=== PATIENT | male | born 1975 | race Caucasian/White ===

== ENCOUNTER 2016-06-22 13:46 | Observation (INO) | payer BC, OTHER ==
[~2016-06-22] VITALS: Ht 182.9 cm; Wt 112.0 kg
[2016-06-22] VITALS (11 sets, daily range): BP systolic 97–134; BP diastolic 47–84; PULSE 89–131; RESP 18–20; TEMP 98.1–101.5; O2SAT 97–100
[~2016-06-22 13:46] MED LIST: LANTUSP SQ
[2016-06-22] MEDS ORDERED: NOVOLOGP2 SQ (15:03)
[2016-06-22] MEDS ORDERED: SODIUM CHLOR 0.9% 1000 ML INJ 600 ML IV ONE (15:09)
[2016-06-22] MEDS ORDERED: SODIUM CHLOR 0.9% 1000 ML INJ 1,000 ML IV ONE ×3 (15:09)
[2016-06-22] MEDS ORDERED: IBUPROFEN 600 MG TAB PO ONE (15:15)
--- NOTE | 2016-06-22 15:25 | PD ---
HPI Chief Complaint: Cold / Flu Symptoms Time Seen by Provider: 15:00 Travel History International Travel<30 days: No Contact w/Intl Traveler<30days: No Traveled to known affect area: No History of Present Illness HPI Patient is a 40-year-old male who presents to emergency room with complaints of not feeling well. Patient reports that for the past 3 days, he has had a cough , reports that he is bringing up clear white sputum. Reports that he has had increased runny nose, sinus congestion with postnasal drip. Patient reports that he has been coughing so much, he has not been able to sleep very well. Patient denies fevers at home, reports that he has been having chills. Patient reports that his ears have been hurting him and reports a sore throat. Patient reports that he is a type I diabetic and does take insulin, reports that his blood sugars have been higher than they normally are in the 200's. Patient reports that he is here from [place], reports that he is here visiting his mom and his family members. Reports that he spent the holidays with his nieces who were sick with cough and congestion. Reports "i think that they may have gotten me sick" Pt with no chest pain or sob at this time. PFSH Past Medical History Blood Disorders: No Heart Rhythm Problems: No Cancer: No Cardiovascular Problems: Yes High Cholesterol: Yes Chest Pain: No Congestive Heart Failure: No Diabetes: Yes Diminished Hearing: No Endocrine: No Gastrointestinal Disorders: Yes GERD: No Genitourinary: No Hepatitis: No Hiatal Hernia: No Hypertension: No Immune Disorder: No Musculoskeletal: No Neurologic: No Psychiatric: No Reproductive: No Respiratory: Yes (sinus infections) Myocardial Infarction: No Ulcer: No Influenza Vaccination: Yes Past Surgical History Appendectomy: No Cholecystectomy: No Pacemaker: No Social History Alcohol Use: No Tobacco Use: No Substance Use: No Allergies-Medications (Allergen,Severity, Reaction): Coded Allergies: Penicillin (Verified Allergy, Severe, UNKNOWN, 06/22/16) Codeine (Verified Adverse Reaction, Severe, NAUSEA AND HALLUCINATIONS, 06/22) Reported Meds & Prescriptions Reported Meds & Active Scripts Active Reported Novolog Inj (Insulin Aspart) 1,000 Unit/10 Ml Vial 1 Units SQ ONCE Review of Systems General / Constitutional: Positive: Fever, Chills Eyes: No: Visual changes HENT: No: Headaches Cardiovascular: No: Chest Pain or Discomfort Respiratory: Positive: Cough, Wheezing, No: Shortness of Breath Gastrointestinal: No: Nausea, Vomiting, Abdominal Pain Genitourinary: No: Dysuria Musculoskeletal: No: Pain Skin: No Rash Neurologic: No: Weakness Psychiatric: No: Depression Endocrine: No: Polydipsia Hematologic/Lymphatic: No: Easy Bruising Physical Exam Narrative GENERAL: Patient in moderate distress SKIN: Warm and dry. HEAD: Atraumatic. Normocephalic. EYES: Pupils equal and round. No scleral icterus. No injection or drainage. ENT: No nasal bleeding or discharge. Mucous membranes pink and moist. TM Intact with no erythema or edema, no evidence of otitis media or externa NECK: Trachea midline. No JVD. CARDIOVASCULAR: Patient tachycardic. No murmur appreciated. RESPIRATORY: No accessory muscle use. Patient with scattered wheezing on exam GASTROINTESTINAL: Abdomen soft, non-tender, nondistended. Hepatic and splenic margins not palpable. MUSCULOSKELETAL: No obvious deformities. No clubbing. No cyanosis. No edema. NEUROLOGICAL: Awake and alert. No obvious cranial nerve deficits. Motor grossly within normal limits. Normal speech. PSYCHIATRIC: Appropriate mood and affect; insight and judgment normal. Data Data Last Documented VS Vital Signs Date Time Temp Pulse Resp B/P Pulse Ox O2 Delivery O2 Flow Rate FiO2 06/22/16 18:22 103 20 100/58 98 Room Air 06/22/16 15:00 99.8 Orders Electrocardiogram (06/22/16 15:09) Complete Blood Count With Diff (06/22/16 15:09) Comprehensive Metabolic Panel (06/22/16 15:09) Prothrombin Time / Inr (Pt) (06/22/16 15:09) Act Partial Throm Time (Ptt) (06/22/16 15:09) Lactic Acid Sepsis Protocol (06/22/16 15:09) Magnesium (Mg) (06/22/16 15:09) Urinalysis - C+S If Indicated (06/22/16 15:09) Influenzae A/B Antigen (06/22/16 15:09) Blood Culture (06/22/16 15:09) Chest, Single Ap (06/22/16 15:09) Blood Glucose (06/22/16 15:09) Ecg Monitoring (06/22/16 15:09) Iv Access Insert/Monitor (06/22/16 15:09) Oximetry (06/22/16 15:09) Oxygen Administration (06/22/16 15:09) Ibuprofen (Motrin) (06/22/16 15:15) Sodium Chlor 0.9% 1000 Ml Inj (Ns 1000 M (06/22/16 15:09) Sodium Chlor 0.9% 1000 Ml Inj (Ns 1000 M (06/22/16 15:09) Sodium Chlor 0.9% 1000 Ml Inj (Ns 1000 M (06/22/16 15:09) Sodium Chlor 0.9% 1000 Ml Inj (Ns 1000 M (06/22/16 15:09) Electrocardiogram (06/22/16 ) Albuterol-Ipratropium Neb (Duoneb Neb) (06/22/16 15:15) Levofloxacin 750 Mg Premix Inj (Levaquin (06/22/16 16:45) Admit Order (Ed Use Only) (06/22/16 18:45) Labs Laboratory Tests Test 06/22/16 06/22/16 15:20 17:05 White Blood Count 11.2 TH/MM3 Red Blood Count 5.72 MIL/MM3 Hemoglobin 15.6 GM/DL Hematocrit 47.8 % Mean Corpuscular Volume 83.6 FL Mean Corpuscular Hemoglobin 27.2 PG Mean Corpuscular Hemoglobin 32.5 % Concent Red Cell Distribution Width 12.9 % Platelet Count 185 TH/MM3 Mean Platelet Volume 10.3 FL Neutrophils (%) (Auto) 81.7 % Lymphocytes (%) (Auto) 10.3 % Monocytes (%) (Auto) 6.9 % Eosinophils (%) (Auto) 0.1 % Basophils (%) (Auto) 1.0 % Neutrophils # (Auto) 9.1 TH/MM3 Lymphocytes # (Auto) 1.2 TH/MM3 Monocytes # (Auto) 0.8 TH/MM3 Eosinophils # (Auto) 0.0 TH/MM3 Basophils # (Auto) 0.1 TH/MM3 CBC Comment DIFF FINAL Differential Comment Prothrombin Time 10.7 SEC Prothromb Time International 1.0 RATIO Ratio Activated Partial 28.0 SEC Thromboplast Time Sodium Level 137 MEQ/L Potassium Level 3.9 MEQ/L Chloride Level 101 MEQ/L Carbon Dioxide Level 22.7 MEQ/L Anion Gap 13 MEQ/L Blood Urea Nitrogen 9 MG/DL Creatinine 0.94 MG/DL Estimat Glomerular Filtration 89 ML/MIN Rate Random Glucose 331 MG/DL Lactic Acid Level 2.2 mmol/L 2.8 mmol/L Calcium Level 9.0 MG/DL Magnesium Level 2.0 MG/DL Total Bilirubin 1.0 MG/DL Aspartate Amino Transf 56 U/L (AST/SGOT) Alanine Aminotransferase 52 U/L (ALT/SGPT) Alkaline Phosphatase 157 U/L Total Protein 7.7 GM/DL Albumin 3.6 GM/DL [facility] Medical Decision Making Medical Screen Exam Complete: Yes Emergency Medical Condition: Yes Interpretation(s) EKG at 1526: Sinus tachycardia at 115bpm, qt/qtc: 318/414, no acute st or t wave changes Vital Signs Date Time Temp Pulse Resp B/P Pulse Ox O2 Delivery O2 Flow Rate FiO2 06/22/16 15:00 99.8 118 20 134/84 100 Room Air 06/22/16 14:54 97 Room Air 06/22/16 14:00 101.5 131 18 97 Differential Diagnosis sepsis, pneumonia, influenza, pneumothorax, dka, electrolyte abnormality Narrative Course Patient is a 40-year-old male who presents to emergency room with complaints of fevers, chills, cough and congestion. Patient reports that symptoms began 3 days ago, reports that he has had increased cough/congestion/fever chills. Pt has been exposed to sick children (his family members) who were sick prior to onset of his symptoms. Pt with SIRS criteria with tachycardia with HR 131 and temp of 101.5. Lactate ordered, pt has been pancutured. 30cc/kg fluid bolus ordered for patient. chest xray ordered to evaluate for possible pneumonia. CBC, BMP ordered as well to evaluate for infection, electrolyte abnormality, hyperglycemia/dka. Patient is wheezing on exam - will give neb treatments as well Patient reevaluated, patient reports that he is feeling better cbc wbc: 11.2 lactate: 2.2 bmp: glucose: 331 xray of chest: mild bibasilar atelectasis pt with DM1 with SIRS criteria, pt has been pancultured, iv dose of antibiotics ordered for him INFLUENZA A POSITIVE - reviewed with pt that his flu is positive. pt has been symptomatic for the past 3 days - not a candidate for tamiflu pts repeat lactate 2.8(after 2 hour protocol), pt still tach with hr 103, bp now 100/58 after 4 liters of fluid pt will require observation at this time as lactate is elevated from 2.2 Critical Care Narrative Aggregate critical care time was 30 minutes. Time to perform other separately billable procedures was not included in the critical care time. My time did not include minutes spent treating any other patients simultaneously or on activities that did not directly contribute to the patient's treatment. The services I provided to this patient were to treat and/or prevent clinically significant deterioration that could result in: , decompensation, deterioration I provided critical care services requiring my management, as noted below: Chart data review, documentation time, medication orders and management, vital sign assessments/reviewing monitor data, ordering and reviewing lab tests, ordering and interpreting/reviewing x-rays and diagnostic studies, care of the patient and discussion of the patient with the admitting physicians. Sepsis Criteria SIRS Criteria (2 or more): Temp > 100.9 or < 96.8, Heart rate over 90 Severe Sepsis (+one): Lactate >2 Criteria Outcome: Meets SIRS criteria Physician Communication Physician Communication case reviewed with dr can who accepts pt to service Diagnosis Primary Impression: SIRS (systemic inflammatory response syndrome) Additional Impressions: Hyperglycemia Influenza A Admitting Information Admitting Physician Requests: Observation Octavia Romero DO Jun 22, 2016 15:25
[2016-06-22] MEDS: RESP: ALBUTEROL 2.5 MG/IPRATROPIUM 0.5 MG NEB (SCH) INH (15:28)
[2016-06-22 15:34] LABS: AUTOMATED NEUTROPHIL # 9.1 TH/MM3 (1.8-7.7); BASOPHIL # 0.1 TH/MM3 (0-0.2); EOSINOPHIL % 0.1 % (0.0-4.0); HEMATOCRIT 47.8 % (39.0-51.0); LYMPH % 10.3 % (9.0-44.0); LYMPHOCYTE # 1.2 TH/MM3 (1.0-4.8); MEAN CELL VOLUME 83.6 FL (80.0-100.0); MEAN CORPUSCULAR HEMOGLOBIN 27.2 PG (27.0-34.0); MEAN CORPUSCULAR HGB CONC 32.5 % (32.0-36.0); MONO % 6.9 % (0.0-8.0); NEUT % 81.7 % (16.0-70.0); PLATELET COUNT 185 TH/MM3 (150-450); RED BLOOD COUNT 5.72 MIL/MM3 (4.50-5.90); RED CELL DISTRIBUTION WIDTH 12.9 % (11.6-17.2); WHITE BLOOD COUNT 11.2 TH/MM3 (4.0-11.0)
[2016-06-22 15:35] LABS: HEMO FLAGS DIFF FINAL
[2016-06-22 15:42] LABS: CHLORIDE 101 MEQ/L (98-107); POTASSIUM 3.9 MEQ/L (3.5-5.1); SODIUM (NA) 137 MEQ/L (136-145)
--- NOTE | 2016-06-22 15:44 | RADHPO ---
EXAM DATE/TIME: 06/22/2016 15:18 [facility] COMPARISON: No previous studies available for comparison. INDICATIONS : Vomitting and cough. MEDICAL HISTORY : None. SURGICAL HISTORY : None. ENCOUNTER: Initial ACUITY: 1 day PAIN SCORE: 2/10 LOCATION: Bilateral chest FINDINGS: Small lung volumes with mild bibasilar atelectasis noted. No perceptible pneumonia. No large effusion . No pneumothorax. Heart size within normal limits. CONCLUSION: Mild bibasilar atelectasis. Oziel Bryant MD on June 22, 2016 at 15:42 Board Certified Radiologist. This report was verified electronically.
[2016-06-22 15:45] LABS: ANION GAP 13 MEQ/L (5-15); BICARBONATE 22.7 MEQ/L (21.0-32.0); BLOOD UREA NITROGEN 9 MG/DL (7-18)
[2016-06-22 15:47] LABS: PROTHROMBIN TIME - PATIENT 10.7 SEC (9.8-11.6)
[2016-06-22 15:48] LABS: ALT (GPT) 52 U/L (12-78); AST (GOT) 56 U/L (15-37); GLOMERULAR FILTRATION RATE 89 ML/MIN (>89)
[2016-06-22 15:51] LABS: ALKALINE PHOSPHATASE 157 U/L (45-117)
[2016-06-22] MEDS ORDERED: LEVOFLOXACIN 750 MG PREMIX INJ 150 ML IV ONE (16:45)
[2016-06-22 17:28] LABS: LACTIC ACID GHOST NOT REPORTABLE
[2016-06-22] MEDS ORDERED: ONDANSETRON HCL 4 MG/2 ML VIAL IVP PRN (19:00)
[2016-06-22] MEDS ORDERED: NALOXONE HCL 0.4 MG/ML AMP IV PRN (19:00)
[2016-06-22] MEDS ORDERED: DEXTROSE 50% IN WATER 50 ML VIAL(D50) IV PUSH PRN (19:00)
[2016-06-22] MEDS ORDERED: ACETAMINOPHEN 325 MG TAB PO PRN (19:00)
[2016-06-22] MEDS ORDERED: GLUCAGON 1 MG/ML VIAL OTHER PRN (19:00)
[2016-06-22] MEDS ORDERED: MAGNESIUM HYDROXIDE SUSP 30 ML CUP PO PRN (19:00)
[2016-06-22] MEDS: NS + KCL 20 MEQ INJ 1,000 ML IV SCH (20:09)
[2016-06-22] MEDS: INSULIN ASPART SUPPLEMENTAL SCALE SQ SCH (20:37)
[2016-06-22 21:32] LABS: BLOOD, URINE NEG (NEG); KETONE, URINE 40 mg/dL (NEG); NITRITE,URINE NEG (NEG)
[2016-06-22 21:46] LABS: GLUCOSE,URINE 1000 OR GREATER mg/dL (NEG)
[2016-06-22 21:52] LABS: METHOD OF COLLECTION CLEAN CATCH; URINE COLOR YELLOW (YELLW/STRAW)
[2016-06-22 21:56] LABS: COMMENT (UR) CULT NOT INDICATED; CULTURE IF INDICATED CULT NOT INDICATED; SQUAMOUS EPITHELIAL CELL URINE 0-5 /hpf (0-5)
[2016-06-23] VITALS (8 sets, daily range): BP systolic 99–133; BP diastolic 63–88; PULSE 73–99; RESP 16–18; TEMP 97.9–100.1; O2SAT 96–99
[2016-06-23] MEDS ORDERED: guaiFENesin/DEXTROMETHORPHAN 200 MG/20 MG/10 ML CUP PO PRN (00:30)
[2016-06-23] MEDS: NS + KCL 20 MEQ INJ 1,000 ML IV SCH (06:17)
[2016-06-23] MEDS: INSULIN ASPART SUPPLEMENTAL SCALE SQ SCH ×2 (06:23→11:00)
[2016-06-23 06:29] LABS: AUTOMATED NEUTROPHIL # 4.2 TH/MM3 (1.8-7.7); BASOPHIL % 0.6 % (0.0-2.0); EOSINOPHIL # 0.1 TH/MM3 (0-0.4); EOSINOPHIL % 1.2 % (0.0-4.0); HEMATOCRIT 38.7 % (39.0-51.0); HEMO FLAGS DIFF FINAL; LYMPH % 24.5 % (9.0-44.0); LYMPHOCYTE # 1.7 TH/MM3 (1.0-4.8); MEAN CELL VOLUME 84.4 FL (80.0-100.0); MEAN CORPUSCULAR HEMOGLOBIN 28.1 PG (27.0-34.0); MEAN CORPUSCULAR HGB CONC 33.3 % (32.0-36.0); NEUT % 59.7 % (16.0-70.0); PLATELET COUNT 135 TH/MM3 (150-450); RED BLOOD COUNT 4.58 MIL/MM3 (4.50-5.90); RED CELL DISTRIBUTION WIDTH 13.1 % (11.6-17.2)
[2016-06-23 06:43] LABS: BICARBONATE 24.6 MEQ/L (21.0-32.0); POTASSIUM 3.6 MEQ/L (3.5-5.1)
[2016-06-23] MEDS ORDERED: IBUPROFEN 400 MG TAB PO PRN (10:30)
[2016-06-23] MEDS ORDERED: OSELTAMIVIR PHOSPHATE 75 MG CAP PO SCH (11:15)
[2016-06-23] MEDS ORDERED: POTASSIUM CHLORIDE 20 MEQ CONTROLLED RELEASE TAB PO ONE (11:45)
--- NOTE | 2016-06-23 15:17 | HHI.HP ---
[facility] Primary Care Physician No Primary Care Physician Admission Diagnosis SIRS, Influenza A Diagnoses: (1) Severe sepsis Diagnosis: Principal (2) Influenza A Diagnosis: Principal (3) Elevated lactic acid level Diagnosis: Principal (4) Type 1 diabetes mellitus with hyperglycemia Diagnosis: Principal Chief Complaint: nasal drip, cough, body aches Travel History International Travel<30 Days: No Contact w/Intl Traveler <30 Da: No Traveled to Known Affected Are: No Sepsis Criteria SIRS Criteria (2 or more): Temp > 100.9 or < 96.8, Heart rate over 90 Sepsis Criteria (SIRS+source): Infect source susp/known Severe Sepsis (+one): Lactate >2 Criteria Outcome: Meets severe sepsis criteria History of Present Illness 40-year-old male, type I diabetic with insulin pump is admitted for influenza. Patient states his flu symptoms started 4 days ago. He admits to postnasal drip and cough as well as ear discomfort, myalgias, and fevers. Patient states he can't sleep due to postnasal drip, but overall states is getting better. He denies any shortness of breath, abdominal pain, nausea, vomiting, or diarrhea. He is eating okay. Patient states he did get the flu shot, but admits to sick contacts. Review of Systems Other ROS x 10 negative unless otherwise indicated in history of present illness. Past Family Social History Past Medical History Type I diabetic Past Surgical History No previous surgeries. Reported Medications Insulin pump: Novolog Inj (Insulin Aspart) 1,000 Unit/10 Ml Vial 1 Units SQ ONCE Allergies: Coded Allergies: Penicillin (Verified Allergy, Severe, UNKNOWN, 06/22/16) Codeine (Verified Adverse Reaction, Severe, NAUSEA AND HALLUCINATIONS, 06/22) Family History Mother: Hypertension, hyperlipidemia, type 2 diabetes. Social History Denies alcohol use. Denies cigarette smoking. Physical Exam Vital Signs Vital Signs Date Time Temp Pulse Resp B/P Pulse Ox O2 Delivery O2 Flow Rate FiO2 06/23/16 12:00 98.6 92 18 119/88 98 06/23/16 11:14 94 06/23/16 08:00 100.1 99 18 133/85 98 06/23/16 07:10 16 99 Room Air 06/23/16 07:10 95 16 99 Room Air 06/23/16 07:10 99 Room Air 06/23/16 07:10 99.1 96 16 107/63 99 Room Air 06/23/16 06:10 80 18 96 Room Air 06/23/16 06:10 97.9 80 18 107/72 96 Room Air 06/23/16 03:43 81 18 99/67 97 Room Air 06/23/16 03:43 81 18 97 Room Air 06/23/16 01:50 73 18 96 Room Air 06/23/16 01:50 73 18 118/74 96 Room Air 06/23/16 00:34 99 18 124/83 99 Room Air 06/22/16 23:28 89 18 134/80 98 Room Air 06/22/16 23:28 89 18 98 Room Air 06/22/16 22:26 95 18 129/75 99 Room Air 06/22/16 22:18 18 06/22/16 21:20 97 18 124/78 100 Room Air 06/22/16 21:20 97 18 100 Room Air 06/22/16 20:10 105 18 102/63 99 Room Air 06/22/16 20:00 98 21 06/22/16 19:08 105 18 97 Room Air 06/22/16 19:08 98.1 105 18 108/63 97 Room Air 06/22/16 18:22 103 20 100/58 98 Room Air 06/22/16 16:54 122 20 97/47 98 Room Air 06/22/16 15:39 98 Room Air 06/22/16 15:39 98 Room Air Physical Exam GENERAL: This is a well-nourished, well-developed patient, in no apparent distress. SKIN: No rashes, ecchymoses or lesions. No diaphoresis. HEAD: Atraumatic. Normocephalic. EYES: No scleral icterus. No injection or drainage. CARDIOVASCULAR: Regular rate and rhythm. RESPIRATORY: Clear to auscultation. Breath sounds equal bilaterally. No wheezes , rales, or rhonchi. GASTROINTESTINAL: Abdomen soft, non-tender, nondistended. MUSCULOSKELETAL: No lower extremity edema bilaterally. NEUROLOGICAL: Awake and alert. Motor grossly within normal limits. Normal speech. Laboratory Laboratory Tests Test 06/22/16 06/22/16 06/22/16 06/23/16 15:20 17:05 21:15 06:05 White Blood Count 11.2 7.0 Red Blood Count 5.72 4.58 Hemoglobin 15.6 12.9 Hematocrit 47.8 38.7 Mean Corpuscular Volume 83.6 84.4 Mean Corpuscular Hemoglobin 27.2 28.1 Mean Corpuscular Hemoglobin 32.5 33.3 Concent Red Cell Distribution Width 12.9 13.1 Platelet Count 185 135 Mean Platelet Volume 10.3 10.0 Neutrophils (%) (Auto) 81.7 59.7 Lymphocytes (%) (Auto) 10.3 24.5 Monocytes (%) (Auto) 6.9 14.0 Eosinophils (%) (Auto) 0.1 1.2 Basophils (%) (Auto) 1.0 0.6 Neutrophils # (Auto) 9.1 4.2 Lymphocytes # (Auto) 1.2 1.7 Monocytes # (Auto) 0.8 1.0 Eosinophils # (Auto) 0.0 0.1 Basophils # (Auto) 0.1 0.0 CBC Comment DIFF FINAL DIFF FINAL Differential Comment Prothrombin Time 10.7 Prothromb Time International 1.0 Ratio Activated Partial 28.0 Thromboplast Time Sodium Level 137 145 Potassium Level 3.9 3.6 Chloride Level 101 112 Carbon Dioxide Level 22.7 24.6 Anion Gap 13 8 Blood Urea Nitrogen 9 6 Creatinine 0.94 0.61 Estimat Glomerular Filtration 89 147 Rate Random Glucose 331 156 Lactic Acid Level 2.2 2.8 1.2 Calcium Level 9.0 7.8 Magnesium Level 2.0 Total Bilirubin 1.0 Aspartate Amino Transf 56 (AST/SGOT) Alanine Aminotransferase 52 (ALT/SGPT) Alkaline Phosphatase 157 Total Protein 7.7 Albumin 3.6 Urine Collection Type CLEAN CATCH Urine Color YELLOW Urine Turbidity CLEAR Urine pH 6.0 Urine Specific [place] 1.033 Urine Protein NEG Urine Glucose (UA) 1000 OR GREATER Urine Ketones 40 Urine Occult Blood NEG Urine Nitrite NEG Urine Bilirubin NEG Urine Leukocyte Esterase NEG Urine Squamous Epithelial 0-5 Cells Microscopic Urinalysis Comment CULT NOT INDICATED Date/Time Procedure Status Source Growth 06/22/16 15:25 Influenza Types A,B Antigen (SUZE) - Final Complete Nasal Aspirate Positive For Flu A Antigen 06/22/16 15:25 Aerobic Blood Culture - Preliminary Resulted Blood Peripheral NO GROWTH IN 1 DAY 06/22/16 15:25 Anaerobic Blood Culture - Preliminary Resulted Blood Peripheral NO GROWTH IN 1 DAY Result Diagram: 06/23/16 0605 06/23/16 0605 Imaging Last Impressions Chest X-Ray 06/22/16 1509 Signed Impressions: Service Date/Time: Wednesday, June 22, 2016 15:18 - CONCLUSION: Mild bibasilar atelectasis. Oziel Bryant MD Assessment and Plan Assessment and Plan 40-year-old male with: Patient admitted for influenza because he has type 1 diabetes and elevated lactic acid. Severe sepsis: Fever of 101.5. Tachycardic at 131 bpm. Lactic acid 2.8--> 1.2. Mild leukocytosis of 11.2. Source of infection influenza A. -IV fluids. -Blood cultures no growth in 1 day -Tamiflu started -Telemetry, vitals Influenza: Antigen A+. Patient with fever, myalgias, postnasal drip, cough. Temp 100.1 this morning, currently afebrile. -Motrin/Tylenol for fever, myalgias prn -Tamiflu -Robitussin prn cough -s/p IVF; oral hydration Type 1 diabetes with hyperglycemia: Improved. Glucose 331 on arrival. No evidence of DKA. Patient has been using his insulin pump and BGL is now normal , 95 at 1220. -Bedside BGLs -Continue insulin pump -Diabetic diet DVT prevention: SCDs, early ambulation. Leukocytosis, lactic acidosis, and hyperglycemia resolved. Patient is stable for discharge. Discharge disposition: Home in stable condition Diet: Diabetic Medications: Continue insulin pump; Tamiflu. Activity: Regular Follow-up: PCP Written by Sandra Dejesus PA-C acting as scribe for Dr. Hussein on 06/23/16 at 1515. The documentation accurately reflects the work and decisions performed face-to- face by me Dr. Hussein on 06/23/16 at 1515. Sandra Dejesus Jun 23, 2016 15:17
[2016-06-23] MEDS ORDERED: OSEL75 PO (15:19)
--- NOTE | 2016-06-23 15:21 | HHI.DCPOC ---
Discharge Care Plan Diagnosis: (1) Severe sepsis (2) Influenza A (3) Type 1 diabetes mellitus with hyperglycemia (4) Elevated lactic acid level Goals to Promote Your Health * To prevent worsening of your condition and complications * To maintain your health at the optimal level Directions to Meet Your Goals Take your medications as prescribed Follow your dietary instruction Follow activity as directed Keep your appointments as scheduled Take your immunizations and boosters as scheduled If your symptoms worsen call your PCP, if no PCP go to Urgent Care Center or Emergency Room Smoking is Dangerous to Your Health. Avoid second hand smoke Call the 24-hour hour crisis hotline for domestic abuse at Sandra Dejesus Jun 23, 2016 15:21
[2016-06-23] MEDS ORDERED: BENZ100 PO (16:19)
--- NOTE | 2016-06-23 17:39 | EKG ---
Date Performed: 06/22/2016 Time Performed: 15:26:54 PTAGE: 40 years EKG: Sinus tachycardia Leftward axis Inferior infarct - age undetermined Low QRS voltages in pre cordial leads When compared to previous tracing, the patient is now Tachycardic. Abnormal ECG PREVIOUS TRACING : 10/14/2008 14.13 DOCTOR: Alice Arroyo Interpretating Date/Time 06/23/2016 17:38:15
== END 2016-06-23 16:34 | disposition home or self-care (01) ==
LOC: PHED 13:46 → PHEDA 18:47 → PHEDH 22:25 → PH3B 06-23 08:04
PROVIDERS: ADMIT Family Medicine; ATTEND Family Medicine
DX: J10.1 Influenza due to other identified influenza virus with other respiratory manifestations (principal); R65.20 Severe sepsis without septic shock; E10.65 Type 1 diabetes mellitus with hyperglycemia; Z79.84 Long term (current) use of oral hypoglycemic drugs; E78.00 Pure hypercholesterolemia, unspecified; R00.0 Tachycardia, unspecified; R74.0 Nonspecific elevation of levels of transaminase and lactic acid dehydrogenase [LDH]
CPT/HCPCS: 71010; 80048; 80053; 81001; 82948; 83605; 83735; 85025; 85610; 85730; 87040; 87804; 93005; 94640; 94664; 96361; 96365; 99291; G0378; J1956; J3480; J7030

== ENCOUNTER 2017-10-21 14:53 | Emergency (ER) | payer BC, OTHER ==
[~2017-10-21] VITALS: Ht 182.9 cm; Wt 116.0 kg
[~2017-10-21 14:53] MED LIST changes: +BENZ100 PO; -LANTUSP SQ; +NOVOLOGP2 SQ; +OSEL75 PO
--- NOTE | 2017-10-21 15:30 | RADRPT ---
EXAM DATE/TIME: 10/21/2017 15:14 [facility] COMPARISON: No previous studies available for comparison. INDICATIONS : Left arm numbness. RADIATION DOSE: 61.24 CTDIvol (mGy) MEDICAL HISTORY : Diabetes mellitus type 2. SURGICAL HISTORY : None. ENCOUNTER: Initial ACUITY: 1 day PAIN SCALE: 0/10 LOCATION: cranial TECHNIQUE: Multiple contiguous axial images were obtained of the head. Using automated exposure control and adj ustment of the mA and/or kV according to patient size, radiation dose was kept as low as reasonably a chievable to obtain optimal diagnostic quality images. DICOM format image data is available electro nically for review and comparison. FINDINGS: CEREBRUM: The ventricles are normal for age. No evidence of midline shift, mass lesion, hemorrhage or acute in farction. No extra-axial fluid collections are seen. POSTERIOR FOSSA: The cerebellum and brainstem are intact. The 4th ventricle is midline. The cerebellopontine angle i s unremarkable. EXTRACRANIAL: The visualized portion of the orbits is intact. SKULL: The calvaria is intact. No evidence of skull fracture. CONCLUSION: Normal examination for a patient of this age. Camron Lew MD on October 21, 2017 at 15:28 Board Certified Radiologist. This report was verified electronically.
--- NOTE | 2017-10-21 15:37 | PD ---
HPI Chief Complaint: Numbness/Tingling Time Seen by Provider: 15:09 Travel History International Travel<30 days: No Contact w/Intl Traveler<30days: No Traveled to known affect area: No History of Present Illness HPI This 42-year-old male he has a history of diabetes and anxiety. Has a history of bipolar disorder. The last few days is having a lot of episodes where his heart seems to speed up and feels a bit anxious. About 20 minutes ago he felt like his left arm went numb. He did not have any trouble walking. He has no history of stroke or heart disease. He subsequently having some pain in his fourth and fifth fingers on the left side PFSH Past Medical History Hx Anticoagulant Therapy: No Blood Disorders: No Anxiety: No Depression: No (HISTORY OF DEPRESSION-NO LONGER BEING TREATED) Heart Rhythm Problems: No Cancer: No Cardiovascular Problems: Yes (CHOL) High Cholesterol: Yes Chest Pain: No Congestive Heart Failure: No Diabetes: Yes Diminished Hearing: No Endocrine: No Gastrointestinal Disorders: Yes GERD: No Genitourinary: No Hepatitis: No Hiatal Hernia: No Hypertension: No Immune Disorder: No Musculoskeletal: No Neurologic: No Psychiatric: No Reproductive: No Respiratory: No Myocardial Infarction: No Sickle Cell Disease: No Thyroid Disease: No Ulcer: No Past Surgical History Appendectomy: No Cholecystectomy: No Insulin Pump: Yes Oral Surgery: Yes (WISDOM TEETH ) Pacemaker: No Social History Alcohol Use: No Tobacco Use: No Substance Use: No Allergies-Medications (Allergen,Severity, Reaction): Coded Allergies: penicillin G (Unverified Allergy, Severe, UNKNOWN, 10/21/17) codeine (Unverified Adverse Reaction, Severe, NAUSEA AND HALLUCINATIONS, ) Reported Meds & Prescriptions Reported Meds & Active Scripts Active Reported Trazodone (Trazodone HCl) 100 Mg Tablet 100 Mg PO HS Oxcarbazepine 150 Mg Tab 200 Mg PO DAILY Rosuvastatin (Rosuvastatin Calcium) 20 Mg Tab 20 Mg PO DAILY Sertraline (Sertraline HCl) 100 Mg Tab 100 Mg PO DAILY Levothyroxine (Levothyroxine Sodium) 50 Mcg Tab 50 Mcg PO DAILY Novolog Inj (Insulin Aspart) 1,000 Unit/10 Ml Vial 1 Units SQ ONCE Review of Systems General / Constitutional: No: Fever, Chills Eyes: No: Diploplia HENT: No: Headaches Cardiovascular: Positive: Chest Pain or Discomfort, Palpitations, No: Irregular Rhythm Respiratory: No: Cough, Shortness of Breath Gastrointestinal: No: Nausea, Vomiting Genitourinary: No: Urgency, Frequency Musculoskeletal: No: Myalgias, Arthralgias Skin: No Rash, No Itching Neurologic: No: Weakness, Dizziness Endocrine: No: Heat Intolerance, Cold Intolerance Hematologic/Lymphatic: No: Easy Bruising Physical Exam Narrative GENERAL: Well-developed male SKIN: Focused skin assessment warm/dry. HEAD: Atraumatic. Normocephalic. EYES: Pupils equal and round. No scleral icterus. No injection or drainage. ENT: No nasal bleeding or discharge. Mucous membranes pink and moist. NECK: Trachea midline. No JVD. CARDIOVASCULAR: Regular rate and rhythm. No murmur appreciated. RESPIRATORY: No accessory muscle use. Clear to auscultation. Breath sounds equal bilaterally. GASTROINTESTINAL: Abdomen soft, non-tender, nondistended. Hepatic and splenic margins not palpable. MUSCULOSKELETAL: No obvious deformities. No clubbing. No cyanosis. No edema. NEUROLOGICAL: Awake and alert. No obvious cranial nerve deficits. Motor grossly within normal limits. Normal speech. PSYCHIATRIC: Anxious mood and affect; insight and judgment normal. Data Data Orders Orders Electrocardiogram (10/21/17 15:) Complete Blood Count With Diff (10/21/17 15:) Comprehensive Metabolic Panel (10/21/17 15:) Troponin I (10/21/17 15:) Urinalysis - C+S If Indicated (10/21/17 15:) Chest, Single Ap (10/21/17 15:) Ct Brain W/O Iv Contrast(Rout) (10/21/17 15:09) Labs Laboratory Tests Test 10/21/17 15:30 White Blood Count 8.7 TH/MM3 Red Blood Count 5.10 MIL/MM3 Hemoglobin 14.6 GM/DL Hematocrit 42.3 % Mean Corpuscular Volume 82.8 FL Mean Corpuscular Hemoglobin 28.7 PG Mean Corpuscular Hemoglobin Concent 34.6 % Red Cell Distribution Width 12.6 % Platelet Count 224 TH/MM3 Mean Platelet Volume 10.6 FL Neutrophils (%) (Auto) 70.0 % Lymphocytes (%) (Auto) 23.0 % Monocytes (%) (Auto) 4.4 % Eosinophils (%) (Auto) 1.4 % Basophils (%) (Auto) 1.2 % Neutrophils # (Auto) 6.1 TH/MM3 Lymphocytes # (Auto) 2.0 TH/MM3 Monocytes # (Auto) 0.4 TH/MM3 Eosinophils # (Auto) 0.1 TH/MM3 Basophils # (Auto) 0.1 TH/MM3 CBC Comment DIFF FINAL Differential Comment Blood Urea Nitrogen 11 MG/DL Creatinine 0.87 MG/DL Random Glucose 322 MG/DL Total Protein 7.0 GM/DL Albumin 3.2 GM/DL Calcium Level 9.1 MG/DL Alkaline Phosphatase 156 U/L Aspartate Amino Transf (AST/SGOT) 20 U/L Alanine Aminotransferase (ALT/SGPT) 35 U/L Total Bilirubin 0.4 MG/DL Sodium Level 138 MEQ/L Potassium Level 4.1 MEQ/L Chloride Level 104 MEQ/L Carbon Dioxide Level 28.1 MEQ/L Anion Gap 6 MEQ/L Estimat Glomerular Filtration Rate 97 ML/MIN Troponin I LESS THAN 0.02 NG/ML MDM Medical Decision Making Medical Screen Exam Complete: Yes Emergency Medical Condition: Yes Medical Record Reviewed: Yes Differential Diagnosis Differential includes TIA, cardiac illness, anxiety Narrative Course CT was done and is negative. EKG shows sinus rhythm. Troponin is normal. Patient never really had no objective neurologic deficit. I suspect this was a panic attack. He is stable for discharge Diagnosis Primary Impression: Panic disorder Disposition: 01 DISCHARGE HOME Condition: Stable Austin Mac MD October 21, 2017 15:37
[2017-10-21 15:42] LABS: AUTOMATED NEUTROPHIL # 6.1 TH/MM3 (1.8-7.7); BASOPHIL # 0.1 TH/MM3 (0-0.2); BASOPHIL % 1.2 % (0.0-2.0); EOSINOPHIL # 0.1 TH/MM3 (0-0.4); EOSINOPHIL % 1.4 % (0.0-4.0); HEMATOCRIT 42.3 % (39.0-51.0); HEMOGLOBIN 14.6 GM/DL (13.0-17.0); MEAN CELL VOLUME 82.8 FL (80.0-100.0); MEAN CORPUSCULAR HEMOGLOBIN 28.7 PG (27.0-34.0); MEAN CORPUSCULAR HGB CONC 34.6 % (32.0-36.0); MEAN PLATELET VOLUME 10.6 FL (7.0-11.0); MONO % 4.4 % (0.0-8.0); MONOCYTE # 0.4 TH/MM3 (0-0.9); PLATELET COUNT 224 TH/MM3 (150-450); RED CELL DISTRIBUTION WIDTH 12.6 % (11.6-17.2); WHITE BLOOD COUNT 8.7 TH/MM3 (4.0-11.0)
[2017-10-21] MEDS ORDERED: TRAZ100T10 PO (15:43)
[2017-10-21] MEDS ORDERED: SERT-129 PO (15:43)
[2017-10-21] MEDS ORDERED: OXCA300T PO (15:43)
[2017-10-21] MEDS ORDERED: ROSU1TAB8 PO (15:43)
[2017-10-21] MEDS ORDERED: OXCA150T PO (15:43)
[2017-10-21] MEDS ORDERED: LEVO50TA4 PO (15:43)
[2017-10-21 15:57] LABS: CHLORIDE 104 MEQ/L (98-107); SODIUM (NA) 138 MEQ/L (136-145)
[2017-10-21 16:00] LABS: ALBUMIN 3.2 GM/DL (3.4-5.0); BICARBONATE 28.1 MEQ/L (21.0-32.0); CALCIUM 9.1 MG/DL (8.5-10.1); GLUCOSE,RANDOM 322 MG/DL (74-106)
[2017-10-21 16:01] LABS: BLOOD UREA NITROGEN 11 MG/DL (7-18)
[2017-10-21 16:03] LABS: ALT (GPT) 35 U/L (12-78); AST (GOT) 20 U/L (15-37)
[2017-10-21 16:04] LABS: CREATININE 0.87 MG/DL (0.60-1.30); GLOMERULAR FILTRATION RATE 97 ML/MIN (>89)
[2017-10-21 16:05] LABS: TOTAL BILIRUBIN ADULT 0.4 MG/DL (0.2-1.0)
[2017-10-21 16:06] LABS: ALKALINE PHOSPHATASE 156 U/L (45-117)
[2017-10-21 16:08] LABS: TROPONIN I LESS THAN 0.02 NG/ML (0.02-0.05)
--- NOTE | 2017-10-21 16:12 | RADRPT ---
EXAM DATE/TIME: 10/21/2017 15:56 [facility] COMPARISON: CHEST SINGLE AP, June 22, 2016, 15:18. INDICATIONS : Left arm numbness starting today MEDICAL HISTORY : Diabetes mellitus type 2. SURGICAL HISTORY : None. ENCOUNTER: Initial ACUITY: 1 day PAIN SCORE: 5/10 LOCATION: Bilateral chest FINDINGS: The heart is normal in size. The lungs are clear. The visualized bony structures are grossly intact. The exam is similar to a previous dated 06/22/16. CONCLUSION: No acute cardiopulmonary findings appeared stable compared to previous examination. Brandon Warren MD on October 21, 2017 at 16:09 Board Certified Radiologist. This report was verified electronically.
[2017-10-21 16:44] LABS: BILIRUBIN, URINE NEG (NEG); BLOOD, URINE NEG (NEG); GLUCOSE,URINE 1000 OR GREATER mg/dL (NEG); KETONE, URINE TRACE mg/dL (NEG); NITRITE,URINE NEG (NEG); URINE COLOR YELLOW (YELLW/STRAW); URINE LEUKOCYTE ESTERASE NEG (NEG)
[2017-10-21 16:48] LABS: SQUAMOUS EPITHELIAL CELL URINE 0-5 /hpf (0-5)
[2017-10-21 17:01] VITALS: BP 114/70
--- NOTE | 2017-10-22 14:26 | EKG ---
Date Performed: 10/21/2017 Time Performed: 15:11:06 PTAGE: 42 years EKG: Sinus rhythm NORMAL ECG Since the PREVIOUS TRACING , no significant change noted PREVIOUS TRACIN06/22/2016 15.26 DOCTOR: Mary Calderon Interpretating Date/Time 10/22/2017 14:20:51
== END 2017-10-21 17:03 | disposition home or self-care (01) ==
LOC: PHED 14:53
DX: F41.0 Panic disorder [episodic paroxysmal anxiety] (principal); R07.9 Chest pain, unspecified; E11.9 Type 2 diabetes mellitus without complications; F31.9 Bipolar disorder, unspecified; E78.00 Pure hypercholesterolemia, unspecified
CPT/HCPCS: 70450; 71045; 80053; 81001; 84484; 85025; 93005; 99285